=== PATIENT | female | born 1985 | race Two or more races ===

== ENCOUNTER 2020-08-27 21:49 | Emergency (ER) | payer OTHER ==
[~2020-08-27] VITALS: Ht 157.5 cm; Wt 75.0 kg
[~2020-08-27 21:49] MED LIST: ALPR0.25 PO; BIRTH CONTROL PO
[2020-08-27 22:44] LABS: BASOPHILS % (AUTO) 1 % (0-1); EOSINOPHILS % (AUTO) 2 % (1-7); LYMPHOCYTES % (AUTO) 35 % (22-44); MEAN CORPUSCULAR HEMOGLOBIN 28.6 pg (27.0-34.8); MEAN CORPUSCULAR HGB CONC 32.9 g/dL (32.4-35.8); MEAN PLATELET VOLUME 8.1 fL (7.4-10.4); MONOCYTES % (AUTO) 5 % (2-9); NEUTROPHILS % (AUTO) 57 % (42-75); PLATELET COUNT 342 x10^3/uL (130-400); RED BLOOD COUNT 3.82 x10^6/uL (3.82-5.3); RED CELL DISTRIBUTION WIDTH 14.5 % (9.6-15.2)
[2020-08-27 22:56] LABS: ALBUMIN 2.9 g/dL (3.4-5.0); ANION GAP 5 mmol/L (5-15); CALCIUM 8.3 mg/dL (8.5-10.1); CHLORIDE 113 mmol/L (98-107); CREATININE 0.55 mg/dL (0.55-1.02)
[2020-08-27 23:15] LABS: TROPONIN I < 0.015 ng/mL (0.000-0.045)
[2020-08-27 23:59] VITALS: BP 109/74
--- NOTE | 2020-08-28 00:22 | NUR ---
IV started for CTA, pt tolerated well. VSS and will cont to monitor.
--- NOTE | 2020-08-28 00:54 | NUR ---
Pt to CT with tech.
--- NOTE | 2020-08-28 01:37 | NUR ---
Pt resting on gurney, no acute distress at this time. Pt aware ERMD is waiting for CT read. VSs and will cont to monitor.
[2020-08-28] MEDS ORDERED: OMNIPAQUE 350 MG/ML, 100ML BOTTLE ONE (06:20)
== END 2020-08-28 02:27 | disposition home or self-care (01) ==
LOC: ED 22:30
DX: R07.89 Other chest pain (principal); M79.651 Pain in right thigh; R06.00 Dyspnea, unspecified; R94.31 Abnormal electrocardiogram [ECG] [EKG]
CPT/HCPCS: 36415; 71045; 71275; 80048; 82040; 83880; 84484; 84703; 85025; 85379; 93005; 93971; 99285; Q9967